=== PATIENT | male | born 1990 | race Caucasian/White ===

== ENCOUNTER 2017-10-24 00:33 | Emergency (ER) | payer SELFPAY ==
[2017-10-24] MEDS ORDERED: fentaNYL 100 MCG/2 ML INJ IVP ONE ×2 (00:40→01:08)
[2017-10-24] MEDS ORDERED: fentaNYL 100 MCG/2 ML INJ ONE ×2 (00:46→01:06)
[2017-10-24] MEDS ORDERED: ONDANSETRON 4 MG/2 ML VIAL ONE (00:46)
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
[2017-10-24 00:53] LABS: PLATELET COUNT 311 10^3/uL (150-400)
[2017-10-24 01:02] LABS: INR 1.01 (0.83-1.16); PROTIME(PATIENT) 13.5 SEC (12.0-15.0)
[2017-10-24] MEDS ORDERED: ONDANSETRON 4 MG/2 ML VIAL IVP ONE (01:15)
[2017-10-24] MEDS ORDERED: ESMOLOL IV ONE (01:20)
[2017-10-24] MEDS ORDERED: SODIUM CHLORIDE IV ONE (01:20)
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
[2017-10-24 04:25] VITALS: BP 121/100; PULSE 102; RESP 16; TEMP 98.4; O2SAT 95
== END 2017-10-24 02:18 | disposition short-term general hospital (02) ==
PROC: 30233N1 Transfusion of Nonautologous Red Blood Cells into Peripheral Vein, Percutaneous Approach (ICD-10-PCS; principal; 2017-10-24)
DX: S25.09XA Other specified injury of thoracic aorta, initial encounter (principal); V03.00XA Pedestrian on foot injured in collision with car, pick-up truck or van in nontraffic accident, initial encounter; Y92.410 Unspecified street and highway as the place of occurrence of the external cause; Y93.89 Activity, other specified
CPT/HCPCS: 82947-QW; 96374; J2405; J3010; P9016

== ENCOUNTER 2018-01-26 20:52 | Emergency (ER) | payer OTHER ==
[2018-01-26 21:21] LABS: PLATELET COUNT 274 10^3/uL (150-400)
[2018-01-26] MEDS ORDERED: IOPAMIDOL (ISOVUE 370) 100 ML BTL IV ONE (21:35)
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
--- NOTE | 2018-01-26 21:59 | CPEKG ---
Heart Rate: 81 RR Interval: 741 P-R Interval: 124 QRSD Interval: 104 QT Interval: 368 QTC Interval: 428 P [place]: 14 QRS [place]: 20 T Wave [place]: 11 EKG Severity - NORMAL ECG - EKG Impression: SINUS RHYTHM Electronically Signed By: Dereje Gloria 27-Jan-2018 17:30:33
[2018-01-26 23:09] VITALS: BP 126/87
== END 2018-01-26 23:08 | disposition home or self-care (01) ==
DX: G89.18 Other acute postprocedural pain (principal); R07.9 Chest pain, unspecified; Z95.5 Presence of coronary angioplasty implant and graft
CPT/HCPCS: 82947-QW; Q9967